=== PATIENT | male | born 1960 | race Caucasian/White ===

== ENCOUNTER → 2024-03-29 09:53 | Outpatient (CLI) | payer OTHER, SELFPAY ==
--- NOTE | 2024-03-29 09:58 | DI.CT.S_ITS ---
PROCEDURE: CT IVP A/P W/WO INDICATIONS: microscopic hematuria TECHNIQUE: Optional 5 mm thick noncontrast images acquired from the diaphragm to the symphysis pubis. After the administration of intravenous contrast, 5 mm thick images acquired from the diaphragm to the symphysis pubis after a 10-minute delay. 2 mm thick coronal and sagittal reformats were then performed of the kidneys and ureters. For radiation dose reduction, the following was used: automated exposure control, adjustment of mA and/or kV according to patient size. COMPARISON: None. FINDINGS: Image quality: Kidneys and Ureters: Both kidneys are normal in size, without hydronephrosis or nephrolithiasis. No perinephric fat stranding. There is normal bilateral renal enhancement. Simple cyst at the inferior pole of the right kidney measuring 5.6 cm. No solid renal mass. Renal calyces appear normal in morphology when filled with contrast. Opacified portions of both ureters demonstrate normal caliber. Distal right ureter is suboptimally opacified. Bladder: Bladder wall thickness is normal. Punctate calcification near the urachus. No calcified bladder stones. OTHER: Lower chest: Unremarkable. Liver: No solid mass. Gallbladder: No radiopaque gallstones or wall thickening. Biliary ducts: No biliary dilation. Pancreas: No ductal dilation. Spleen: Size is within normal limits. Adrenal Glands: No adrenal nodules. Stomach and Bowel: Normal colonic caliber, without significant wall thickening. Normal appendix. Peritoneum: No abnormal intraperitoneal fluid. No free air. Ventral Wall: No hernia. Abdominal Nodes: No retroperitoneal or mesenteric adenopathy by size criteria. Vessels: Aorta and inferior vena cava are normal in size. PELVIS: Pelvic Organs: Unremarkable. Pelvic Nodes: No enlarged lymph nodes. Miscellaneous: No inguinal hernias are seen. Bones: No aggressive osseous abnormality. IMPRESSION: No nephrolithiasis or filling defects within the opacified renal collecting system or ureters. No solid renal mass. Dictated by: Henrique Caceres M.D. on 03/30/2024 at 22:32 Approved by: Henrique Caceres M.D. on 03/30/2024 at 22:54
[2024-03-29 10:26] LABS: Estimated Glomerular Filt Rate > 60 mL/min (>60)
== END ==
PROVIDERS: Radiology Diagnostic Radiology; Referring Provider Physician Assistant Medical; Visit Provider Physician Assistant Medical
DX: R31.29 Other microscopic hematuria (principal)
CPT/HCPCS: 36415; 74178; 82565; Q9967